=== PATIENT | female | born 1990 | race Caucasian/White ===

== ENCOUNTER 2025-04-27 13:45 | Emergency (ER) | payer BC ==
[~2025-04-27] VITALS: Ht 167.6 cm; Wt 63.5 kg
[2025-04-27] MEDS ORDERED: Lactated Ringer's Solution 1,000 ML IV SCH (14:45)
[2025-04-27 14:56] LABS: BASO # 0.1 10*3/uL (0.0-0.1); BASO % 0.8 % (0.0-1.0); EOS # 0.1 10*3/uL (0.0-0.4); EOS % 0.7 % (1.0-4.0); MEAN CELL VOLUME 86.8 fl (81.0-99.0); MEAN CORPUSCULAR HGB 29.2 pg (27.0-31.0); MEAN PLATELET VOLUME 9.7 fl (9.6-12.3); MONO # 0.9 10*3/uL (0.1-1.0); MONO % 10.1 % (3.0-9.0); NEUT # 6.6 10*3/uL (2.3-7.9); NEUT % 73.3 % (47.0-73.0); NUCLEATED RED BLOOD CELL 0.0 % (0.0-0.0); NUCLEATED RED BLOOD CELL 0.0 10*3/uL (0.0-0.0); PLATELET COUNT AUTOMATED 302 10*3/uL (130-400); RED CELL DISTRI WIDTH 12.3 % (0-14.5)
[2025-04-27 15:20] LABS: BUN 12 mg/dl (9-23); SGPT/ALT 20 U/L (5-49)
[2025-04-27 16:20] LABS: BILIRUBIN Negative (Negative); BLOOD 1+ (Negative); CLARITY Cloudy (Clear); COLOR Dark Yellow (Yellow); KETONE 1+ (Negative); LEUKO ESTERASE Negative (Negative); NITRITE Positive (Negative); PH 6.0 (4.5-8.0); SPECIFIC GRAVITY >= 1.030 (1.001-1.030); UROBILINOGEN 1.0 E.U./dl (0.0-1.0)
[2025-04-27 16:33] LABS: BACTERIA 3+; MUCOUS 2+
== END 2025-04-27 18:02 | disposition home or self-care (01) ==
LOC: ED 13:45
PROVIDERS: Emergency Medicine
DX: R19.7 Diarrhea, unspecified (principal); K92.1 Melena; Z88.0 Allergy status to penicillin